=== PATIENT | female | born 1975 | race Hispanic/Latino ===

== ENCOUNTER 2023-08-25 08:13 | Emergency (ER) | payer SELFPAY ==
--- NOTE | 2023-08-25 08:47 | EDPHYS ---
Physician Documentation [facility] Name: Melony Kaiser Age: 48 yrs Sex: Female : 1975 Arrival Date: 08/25/2023 Time: 08:13 Bed DX5 Private MD: ED Physician Akhil Caraballo HPI: 08/25 09:27 This 48 yrs old Female presents to ER via Ambulatory with complaints of ms3 Headache, Facial Swelling. 09:27 48-year-old female with no past medical history presents to the emergency department ms3 for right facial swelling that began on waking up this morning. Patient states she does have right lower tooth pain that she rates a 9/10. Patient notes she did have a right-sided headache yesterday. Patient denies fevers, chills, nausea, vomiting. 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 - Social history:: Smoking status: Patient reports the use of cigarette tobacco products, denies chronic smoking, but will smoke occasionally. ROS: 09:27 Constitutional: Negative for fever, and chills. Neck: Negative for injury, pain, and ms3 swelling, Cardiovascular: Negative for chest pain, and palpitations. Respiratory: Negative for shortness of breath, cough, wheezing, and pleuritic chest pain, Abdomen/GI: Negative for abdominal pain, nausea, vomiting, diarrhea, and constipation, 09:27 ENT: Positive for dental pain, 09:27 All other systems are negative, Exam: 09:27 Constitutional: This is a well developed, well nourished patient who is awake, alert, ms3 and in no acute distress. Head/Face: Normocephalic, atraumatic. Neck: Trachea midline, no cervical lymphadenopathy. Supple, full range of motion without nuchal rigidity, or vertebral point tenderness. No Meningismus. Chest/axilla: Normal chest wall appearance and motion. Nontender with no deformity. Cardiovascular: Regular rate and rhythm with a normal S1 and S2. No gallops, murmurs, or rubs. Normal PMI, no JVD. No pulse deficits. Respiratory: Lungs have equal breath sounds bilaterally, clear to auscultation and percussion. No rales, rhonchi or wheezes noted. No increased work of breathing, no retractions or nasal flaring. 09:27 ENT: Dental exam: gum swelling, that is mild, specifically in the lower right first molar (#30), Vital Signs: 08:41 BP 164 / 95; Pulse 73; Resp 17; Temp 98.4; Pulse Ox 99% ; Weight 94.8 kg; Height 5 ft. as6 7 in. ; Pain 9/10; 08:41 Body Mass Index 32.73 (94.80 kg, 170.18 cm) as6 08:41 Pain Scale: Adult as6 MDM: 08:45 Patient medically screened. ms3 09:27 Differential diagnosis: Dental caries versus dental abscess versus gingivitis. Data ms3 reviewed: vital signs, nurses notes, and as a result, I will discharge patient. I considered the following discharge prescriptions or medication management in the emergency department See prescription for clindamycin. Counseling: I had a detailed discussion with the patient and/or guardian regarding the historical points, exam findings, and any diagnostic results supporting the discharge/admit diagnosis, the need for outpatient follow up, to return to the emergency department if symptoms worsen or persist or if there are any questions or concerns that arise at home. ED course: Discussed physical exam findings with patient. Patient understands and agrees with plan. Patient to follow-up with Dr. Caldwell in 2 to 3 days. All questions were answered. Return precautions discussed include worsening symptoms, fevers, chills, numbness, weakness, or any other concerns. Administered Medications: 09:04 Drug: Ibuprofen PO 600 mg PO once Route: PO; kb3 Disposition Summary: 08/25/23 08:46 Discharge Ordered Notes: Location: Home ms3 Condition: Stable ms3 Diagnosis - Dental Pain ms3 Followup: ms3 - With: Jose Juan Burkett DDS - When: 2 - 3 days - Reason: Recheck today's complaints Discharge Instructions: - Discharge Summary Sheet ms3 - Dental Pain ms3 Forms: - Medication Reconciliation Form ms3 - Thank You Letter ms3 - Antibiotic Education ms3 - Prescription Opioid Use ms3 - Patient Portal Instructions ms3 - Leadership Thank You Letter ms3 - Work release form kb3 Prescriptions: - Clindamycin HCl 300 mg Oral Capsule - take 1 capsule ORAL route every 6 hours for 10 days; 40 capsule; Refills: 0, ms3 Product Selection Permitted Signatures: Akhil Caraballo DO DO ms3 Cecil Elias, RN RN as6 Lynsey Leach RN RN kb3
--- NOTE | 2023-08-25 08:47 | ER ---
Nurse's Notes [facility] Name: Melony Kaiser Age: 48 yrs Sex: Female : 1975 Arrival Date: 08/25/2023 Time: 08:13 Bed DX5 Private MD: Diagnosis: Dental Pain Presentation: 08/25 08:41 Chief complaint: Patient states: Right sided STOCK with facial swelling x 3 days, swelling as6 extends from right temporal area to right jaw. Coronavirus screen: At this time, the client does not indicate any symptoms associated with coronavirus-19. Ebola Screen: No symptoms or risks identified at this time. Initial Sepsis Screen: Does the patient meet any 2 criteria? No. Patient's initial sepsis screen is negative. Does the patient have a suspected source of infection? No. Patient's initial sepsis screen is negative. Risk Assessment: Do you want to hurt yourself or someone else? Patient reports no desire to harm self or others. Onset of symptoms was August 22, 2023. 08:41 Method Of Arrival: Ambulatory as6 08:41 Acuity: KWAKU 3 as6 Triage Assessment: 08:43 Headache History: The patient has had previous headaches and this one is similar to as6 previous episodes. General: Appears in no apparent distress. uncomfortable, Behavior is calm, cooperative, appropriate for age. Pain: Complains of pain in STOCK Pain currently is 9 out of 10 on a pain scale. Pain began 2-3 days ago. Also complains of no other associated symptoms. Neuro: Level of Consciousness is awake, alert, obeys commands, Oriented to person, place, time, situation. 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 - Social history:: Smoking status: Patient reports the use of cigarette tobacco products, denies chronic smoking, but will smoke occasionally. Screenin:12 [facility] ED Fall Risk Assessment (Adult) History of falling in the last 3 months, kb3 including since admission No falls in past 3 months (0 pts) Confusion or Disorientation No (0 pts) Intoxicated or Sedated No (0 pts) Impaired Gait No (0 pts) Mobility Assist Device Used No (0 pt) Altered Elimination No (0 pt) Score/Fall Risk Level 0 - 2 = Low Risk Oriented to surroundings. Abuse screen: Denies threats or abuse. Denies injuries from another. Nutritional screening: No deficits noted. Tuberculosis screening: No symptoms or risk factors identified. Assessment: 08:44 Reassessment: / Rashmi in triage assessing pt. as6 09:09 Pain:. kb3 09:12 Pain: Complains of pain in lower right second bicuspid, lower right first molar and kb3 lower right second molar Pain radiates to right cheek and right ear Pain currently is 8 out of 10 on a pain scale. Quality of pain is described as aching. Vital Signs: 08:41 BP 164 / 95; Pulse 73; Resp 17; Temp 98.4; Pulse Ox 99% ; Weight 94.8 kg; Height 5 ft. as6 7 in. ; Pain 9/10; 08:41 Body Mass Index 32.73 (94.80 kg, 170.18 cm) as6 08:41 Pain Scale: Adult as6 ED Course: 08:13 Patient arrived in ED. rg4 08:38 Akhil Caraballo DO is Attending Physician. ms3 08:43 Triage completed. as6 08:43 Arm band placed on right wrist. as6 08:46 Jose Juan Burkett DDS is Referral Physician. ms3 09:12 Patient has correct armband on for positive identification. Provided Education on: Plan kb3 of care. 09:12 No provider procedures requiring assistance completed. Patient did not have IV access kb3 during this emergency room visit. Administered Medications: 09:04 Drug: Ibuprofen PO 600 mg PO once Route: PO; kb3 Medication: 09:12 VIS not applicable for this client. kb3 Outcome: 08:46 Discharge ordered by . ms3 09:12 Discharged to home ambulatory, kb3 09:12 Condition: stable 09:12 Discharge instructions given to patient, Instructed on discharge instructions, follow up and referral plans. medication usage, Demonstrated understanding of instructions, follow-up care, medications, Prescriptions given X 1, 09:14 Patient left the ED. kb3 Signatures: [place] rg4 Akhil Caraballo DO DO ms3 Cecil Elias, RN RN as6 Lynsey Leach, RN RN kb3
[2023-08-25] MEDS ORDERED: IBUPROFEN 200 MG TAB PO ONE (09:09)
[2023-08-25] MEDS ORDERED: IBUPROFEN 400 MG TAB ONE (09:09)
[2023-08-25 09:19] VITALS: BP 164/95; TEMP 98.4; O2SAT 99
== END 2023-08-25 09:14 | disposition home or self-care (01) ==
LOC: ER 08:13
DX: K08.89 Other specified disorders of teeth and supporting structures (principal)
CPT/HCPCS: 99283